=== PATIENT | male | born 1975 | race Caucasian/White ===

== ENCOUNTER 2017-09-08 11:24 | Emergency (ER) | payer OTHER ==
[2017-09-08 11:30] VITALS: BP 136/92
--- NOTE | 2017-09-08 11:39 | EDPHY ---
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 He landed on both knees, complains of pain near the patella on both sides. REVIEW OF SYSTEMS: No skin changes laceration or bruising PAST MEDICAL HISTORY: Diabetes, cholesterol Social history: Security in the ED General Appearance: Alert and conversant, cooperative. Normal range of motion of both knees. No bony tenderness. Both stable to varus and valgus stress and Nakia's is negative. He is able to stand and squat and stand back up again unassisted. Does not have pain on varus or valgus stress. No effusion appreciated. Emergency Department course/MDM: Likely bilateral knee contusions. Suspicion for internal ligamentous injury low at this time. Does not have indication for x-ray as I think bony fracture is unlikely, patient in agreement. Activity as tolerated, follow up if needed. Smoking Status: Former smoker Constitutional: Initial Vital Signs Temperature (C) 36.6 C 09/08/17 11:27 Heart Rate 99 09/08/17 11:27 Respiratory Rate 16 09/08/17 11:27 Blood Pressure 136/92 H 09/08/17 11:27 O2 Sat (%) 96 09/08/17 11:27 O2 Delivery Mode Room Air Allergies/Adverse Reactions: No Known Allergies Allergy (Unverified 09/08/17 11:30) Home Medications: Medication Instructions Recorded Atorvastatin Calcium 09/08/17 Levemir 09/08/17 Lisinopril 09/08/17 Metformin HCl 09/08/17 MDM/Departure - Depart Disposition: Home, Routine, Self-Care Clinical Impression: bilateral knee contusions Condition: Good Instructions: Knee Pain (ED) Additional Instructions: Activity and work as tolerated. Please follow-up with work comp clinic if you' re not completely better in 48 hr. Referrals: MARGARET EDUARDO [Other] - As per Instructions
== END 2017-09-08 11:40 | disposition home or self-care (01) ==
DX: M79.81 Nontraumatic hematoma of soft tissue (principal); E11.9 Type 2 diabetes mellitus without complications; Z79.84 Long term (current) use of oral hypoglycemic drugs; Z87.891 Personal history of nicotine dependence

== ENCOUNTER → 2017-09-09 | Outpatient (CLI) | payer OTHER | LOC: CIMAGING 13:55 | PROVIDERS: ATTEND Physical Medicine & Rehabilitation | DX: Z13.828 Encounter for screening for other musculoskeletal disorder (principal) | CPT/HCPCS: 73564-PO ==